=== PATIENT | female | born 1970 | race Two or more races ===

== ENCOUNTER 2025-05-29 16:34 | Emergency (ER) | payer MEDICAID, OTHER ==
[~2025-05-29] VITALS: Ht 154.9 cm; Wt 42.6 kg
[2025-05-29 16:51] VITALS: BP 95/60; TEMP 98.3; O2SAT 98
[2025-05-29] MEDS ORDERED: CEPHALEXIN MONOHYDRATE 500 MG CAPSULE PO ONE (19:04)
[2025-05-29] MEDS: CEPHALEXIN MONOHYDRATE 500 MG CAPSULE PO ONE (19:06)
[2025-05-29] MEDS ORDERED: IBUP-1490 PO (19:09)
[2025-05-29] MEDS ORDERED: CEPH-570 PO (19:09)
== END 2025-05-29 19:27 | disposition home or self-care (01) ==
LOC: ER 16:46
DX: S62.633B Displaced fracture of distal phalanx of left middle finger, initial encounter for open fracture (principal); W23.0XXA Caught, crushed, jammed, or pinched between moving objects, initial encounter; Y93.89 Activity, other specified; Y92.89 Other specified places as the place of occurrence of the external cause; Y99.8 Other external cause status
CPT/HCPCS: 73140-TC